=== PATIENT | male | born 1995 | race Caucasian/White ===

== ENCOUNTER 2018-11-08 16:30 | Emergency (ER) | payer OTHER ==
[2018-11-08] MEDS ORDERED: LIDOCAINE 1% INJ-PF (10 MG/ML) 30 ML SDV INJ ONE (17:09)
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
[2018-11-08] MEDS ORDERED: LIDOCAINE 0.5%/EPINEPHRINE INJ 50 ML VIAL INJ ONE (18:09)
[2018-11-08] MEDS ORDERED: DIPH/PERTUSS(ACELL)/TETANUS VAC/PF 0.5 ML SYR (>=10YO) IM ONE (18:13)
[2018-11-08] MEDS ORDERED: HYDROMORPHONE HCL INJ/PF 2 MG/ML AMPULE IM ONE (18:13)
[2018-11-08] MEDS ORDERED: AMOXICILLIN TR/POT CLAVULANATE 500-125 MG TAB PO ONE (18:17)
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
[2018-11-08] MEDS ORDERED: HYDROCODONE/ACETAMINOPHEN 5-325 MG (6 TAB/ER DISP) PO PRN (19:40)
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
[2018-11-08 20:25] VITALS: BP 104/83
== END 2018-11-08 20:25 | disposition home or self-care (01) ==
LOC: ER 16:30
DX: S62.515A Nondisplaced fracture of proximal phalanx of left thumb, initial encounter for closed fracture (principal); S81.012A Laceration without foreign body, left knee, initial encounter; M79.641 Pain in right hand; M79.642 Pain in left hand; M25.552 Pain in left hip; M25.562 Pain in left knee; V86.56XA Driver of dirt bike or motor/cross bike injured in nontraffic accident, initial encounter; Y93.79 Activity, other specified sports and athletics; Z72.0 Tobacco use; Z88.8 Allergy status to other drugs, medicaments and biological substances; Z23 Encounter for immunization
CPT/HCPCS: 99283; 73502; 73564; 73130; 90715; 12002; 29125; L1830; J3490; J1170